=== PATIENT | female | born 1940 | race Caucasian/White ===

== ENCOUNTER 2021-01-12 17:01 | Outpatient (CLI) | payer MEDICARE, BC ==
[2021-01-12 20:49] LABS: BF CLARITY CLEAR; BF COLOR YELLOW
[2021-01-12 20:50] LABS: BF SOURCE SYNOVIAL; CC,BF RBC < 3000 /mm^3; CC,BF WBC 177 /mm^3; MESOTHELIAL %, BF 0 %
--- NOTE | 2021-01-13 12:02 | XRAY Report ---
PROCEDURE: Knee 3 View RT INDICATIONS: MASS OF RIGHT KNEE TECHNIQUE: 3 views of the right knee(s) were acquired. COMPARISON: None. FINDINGS: Bones: No fractures or dislocations. No suspicious bony lesions. There is moderate medial and faith llofemoral as well as mild lateral compartment narrowing. Periarticular osteophytes are present. No e rosions. Soft tissues: Minimal joint effusion. No suspicious soft tissue calcifications. Ill-defined soft ti ssue prominence anterior to the tibial tuberosity. IMPRESSION: 1. Tricompartmental arthritic change. 2. Ill-defined soft tissue prominence anterior to the tibial tuberosity seen on lateral view. It is o verall nonspecific on the basis of this examination. If concern persists, cross-sectional imaging suc h as MRI knee without contrast is recommended. Reviewed by: Nory Lantigua MD on 01/13/2021 12:00 PM PDT Approved by: Nory Lantigua MD on 01/13/2021 12:00 PM PDT Station ID: [id number]
== END 2021-01-12 23:59 | disposition home or self-care (01) ==
LOC: DI.S 17:01
PROVIDERS: ATTEND Physician Assistant Medical
DX: M17.11 Unilateral primary osteoarthritis, right knee (principal); M25.861 Other specified joint disorders, right knee
CPT/HCPCS: 87070; 87205; 89051